=== PATIENT | female | born 1965 | race American Indian/Alaskan Native ===

== ENCOUNTER 2016-12-19 01:45 | Emergency (ER) | payer SELFPAY ==
[2016-12-19] MEDS ORDERED: DUONEB *Not for PRN Use IH ONE ×2 (01:54→02:02)
[2016-12-19 02:30] LABS: Basophils % (Auto) 0.3 % (0.0-1.8); Eosinophils % (Auto) 0.2 % (0.0-4.3); Hematocrit 43.8 % (30.3-42.9); Hemoglobin 14.2 gm/dl (10.1-14.3); Mean Corpuscular HGB Conc 33 % (30-34); Mean Corpuscular Hemoglobin 27 pg (28-32); Mean Corpuscular Volume 82 fl (79-97); Platelet Count 243 K/mm3 (140-440); Red Blood Count 5.35 M/mm3 (3.65-5.03); Red Cell Distribution Width 15.4 % (13.2-15.2); White Blood Count 13.8 K/mm3 (4.5-11.0)
[2016-12-19] MEDS ORDERED: PROVENTIL IH ONE ×3 (05:25→08:38)
--- NOTE | 2016-12-19 07:25 | XRay Report ---
Chest 2 views: History: Cough and fever. Findings: Normal cardiomediastinal silhouette. Trachea is midline. No consolidation, pneumothorax or pleural effusion. Impression: No acute cardiopulmonary findings.
[2016-12-19 08:16] VITALS: BP 150/94
[2016-12-19] MEDS ORDERED: PHENERGAN/CODEINE 6.25-10 MG/5ML PO ONE (08:37)
[2016-12-19] MEDS ORDERED: DECADRON IM ONE (08:37)
[2016-12-19 09:01] LABS: Bacteria,Urine 1+ /HPF (Negative); Bilirubin,Urine NEG (Negative); Blood,Urine NEG (Negative); Ketones,Urine NEG (Negative); Leukocyte Esterase,Urine NEG (Negative); Mucus,Urine FEW /HPF; Nitrite,Urine NEG (Negative); Protein,Urine <15 mg/dL mg/dL (Negative); Urobilinogen,Urine < 2.0 mg/dL (<2.0)
--- NOTE | 2016-12-19 11:03 | Emergency Department Report ---
Minor Respiratory - HPI Chief Complaint: Upper Respiratory Infection Stated Complaint: COUGH/CONGESTION Duration: 4 Days Severity: mild Minor Respiratory: Yes Able to Tolerate Fluids, Yes Cough, No Rhinorrhea, No Sore Throat, No Ear Pain, No Sick Contacts, No Hemoptysis, No Chest Pain, No Shortness of Breath, No Fever Other History: 51 year old female presents to ED with coughing and chest congestion and wheezing x4 days. patient denies chest pain or ANUEL. patient is stable, neurologically intact and in no acute distress. patient denies history of asthma, COPD or DM. patient is stable, neurologically intact and in no acute distress. ED Review of Systems ROS: Stated complaint: COUGH/CONGESTION Other details as noted in HPI Constitutional: denies: chills, fever Eyes: denies: eye pain, eye discharge, vision change ENT: denies: ear pain, throat pain Respiratory: cough, wheezing. denies: shortness of breath, stridor Cardiovascular: denies: chest pain, palpitations Endocrine: no symptoms reported Gastrointestinal: denies: abdominal pain, nausea, diarrhea Genitourinary: denies: urgency, dysuria, discharge Musculoskeletal: denies: back pain, joint swelling, arthralgia Skin: denies: rash, lesions Neurological: denies: headache, weakness, paresthesias Psychiatric: denies: anxiety, depression Hematological/Lymphatic: denies: easy bleeding, easy bruising ED Past Medical Hx - Past Medical History Previous Medical History?: Yes Additional medical history: BRONCHITIS - Surgical History Past Surgical History?: Yes Additional Surgical History: HYSTERECTOMY / BACK SURGERY - Social History Smoking Status: Former Smoker Substance Use Type: None - Medications Home Medications: Home Medications Medication Instructions Recorded Confirmed Last Taken Type ALBUTEROL Inhaler [ProAir HFA 1 puff IH Q8H PRN #1 inha 12/19/16 Unknown Rx Inhaler] methylPREDNISolone [Medrol Dose 4 mg PO QAM #1 pack 12/19/16 Unknown Rx Francisco] Minor Respiratory Exam - Exam General: Vital signs noted. No distress. Alert and acting appropriately. HEENT: Yes Moist Mucous Membranes, No Pharyngeal Erythema, No Pharyngeal Exudates, No Rhinorrhea, No Conjuctival Injection, No Frontal Tenderness, No Maxillary Tenderness Ear: Neither TM Bulge, Neither TM Erythema, Neither EAC Pain, Neither EAC Discharge Neck: Yes Supple, No Adenopathy Lungs: Yes Good Air Exchange, Yes Wheezes, Yes Cough, No Ronchi, No Stridor, No Labored Respirations, No Retractions, No Use of Accessory Muscles, No Other Abnormal Lung Sounds Heart: Yes Regular, No Murmur Abdomen: Yes Normal Bowel Sounds, No Tenderness, No Peritoneal Signs Skin: No Rash, No Edema Neurologic: Alert and oriented, no deficits. Musculoskeletal: Unremarkable. ED Course Vital Signs 12/19/16 12/19/16 12/19/16 01:56 02:07 02:15 Temperature 98.3 F Pulse Rate 75 Pulse Rate [ 75 81 Posterior Bilateral] Respiratory 24 Rate Respiratory 22 20 Rate [Posterior Bilateral] Blood Pressure 172/117 Blood Pressure [Left] O2 Sat by Pulse 99 Oximetry 12/19/16 12/19/16 12/19/16 05:25 05:39 06:21 Temperature 98.6 F Pulse Rate 87 Pulse Rate [ 81 88 Posterior Bilateral] Respiratory 16 Rate Respiratory 20 18 Rate [Posterior Bilateral] Blood Pressure 152/96 Blood Pressure [Left] O2 Sat by Pulse 95 Oximetry 12/19/16 12/19/16 12/19/16 08:15 08:16 08:52 Temperature 97.9 F Pulse Rate 78 Pulse Rate [ 85 Posterior Bilateral] Respiratory 16 16 Rate Respiratory 18 Rate [Posterior Bilateral] Blood Pressure Blood Pressure 150/94 [Left] O2 Sat by Pulse 98 98 Oximetry 12/19/16 09:30 Temperature Pulse Rate Pulse Rate [ 88 Posterior Bilateral] Respiratory Rate Respiratory 18 Rate [Posterior Bilateral] Blood Pressure Blood Pressure [Left] O2 Sat by Pulse Oximetry ED Medical Decision Making - Lab Data Result diagrams: 12/19/16 02:21 Labs 12/19/16 12/19/16 02:21 08:36 WBC 13.8 H RBC 5.35 H Hgb 14.2 Hct 43.8 H MCV 82 MCH 27 L MCHC 33 RDW 15.4 H Plt Count 243 Lymph % (Auto) 14.9 [place] % (Auto) 5.2 Eos % (Auto) 0.2 Baso % (Auto) 0.3 Lymph # 2.1 [place] # 0.7 Eos # 0.0 Baso # 0.0 Seg Neutrophils % 79.4 H Seg Neutrophils # 10.9 H Urine Color Yellow Urine Turbidity Clear Urine pH 6.0 Ur Specific [place] 1.014 Urine Protein <15 mg/dl Urine Glucose (UA) Neg Urine Ketones Neg Urine Blood Neg Urine Nitrite Neg Urine Bilirubin Neg Urine Urobilinogen < 2.0 Ur Leukocyte Esterase Neg Urine WBC (Auto) 1.0 Urine RBC (Auto) 1.0 U Epithel Cells (Auto) 4.0 Urine Bacteria (Auto) 1+ Urine Mucus Few negative flu test - Radiology Data Radiology results: report reviewed Xr Chest No acute cardiopulmonary findings. - Medical Decision Making 51 year old female presents to ED with cough and wheezing and chest congestion. patient has history of bronchitis. patient is active smoker. patient has no acute findings on CXR with mildly elevated WBC at 13. patient has blood cultures pending. patient has no wheezing on re examination after codeine syrup , IM steroids and albuterol breathing treatment. patient is stable, neurologically intact and in no acute distress. Critical care attestation.: If time is entered above; I have spent that time in minutes in the direct care of this critically ill patient, excluding procedure time. ED Disposition Clinical Impression: Bronchitis, acute Qualifiers: Bronchitis organism: unspecified organism Qualified Code(s): J20.9 - Acute bronchitis, unspecified Disposition: DC-01 TO HOME OR SELFCARE Is pt being admited?: No Does the pt Need Aspirin: No Condition: Stable Instructions: Acute Bronchitis (ED) Prescriptions: ALBUTEROL Inhaler [ProAir HFA Inhaler] 1 puff IH Q8H PRN #1 inha PRN Reason: Wheezing methylPREDNISolone [Medrol Dose [place]] 4 mg PO QAM #1 pack Referrals: PRIMARY CARE, [Primary Care Provider] - 3-5 Days Forms: Work/School Release Form(ED)
== END 2016-12-19 11:27 | disposition home or self-care (01) ==
LOC: ED 01:45
DX: J20.9 Acute bronchitis, unspecified (principal); Z87.891 Personal history of nicotine dependence
CPT/HCPCS: 36415; 71020; 81001; 85025; 87040; 87400; 94640; 94644; 96372; 99284; J1100